=== PATIENT | female | born 1965 | race African-American/Black ===

== ENCOUNTER 2020-03-13 16:25 | Inpatient (IN) | payer MEDICAID ==
[~2020-03-13] VITALS: Ht 157.5 cm; Wt 57.6 kg
[~2020-03-13 16:25] MED LIST: UNK HTN MEDS
[2020-03-13] MEDS ORDERED: ACETAMINOPHEN 325MG TABLET PO STA (17:31)
[2020-03-13] MEDS ORDERED: ONDANSETRON HCL 4MG/2ML INJ IV STA (17:31)
[2020-03-13] MEDS ORDERED: SODIUM CHLORIDE 0.9% 1,000 ML IV ONE (17:31)
[2020-03-13] MEDS ORDERED: MORPHINE SULFATE 4 MG/ML CPJ (NOT FOR IM USE) IV STA (17:31)
[2020-03-13 18:07] LABS: HEMATOCRIT. 30.5 % (36.0-48.0); HEMOGLOBIN. 10.4 g/dL (12.0-16.0); MEAN CORPUSCULAR HEMOGLOBIN 30.8 pg (28.0-32.0); MEAN PLATELET VOLUME 6.6 fl (7.4-10.4); PLATELET 968 x1000/uL (130-400); RED BLOOD CELL COUNT 3.38 mill/uL (4.2-5.4); RED CELL DISTRIBUTION WIDTH 16.8 % (11.6-14.6)
[2020-03-13 18:13] LABS: CHLORIDE 88 mEq/L (98-107)
[2020-03-13 18:25] LABS: INR 1.2; PROTHROMBIN TIME 12.9 sec (9.6-11.0)
[2020-03-13 18:56] LABS: CLARITY URINE CLEAR (CLEAR); COLOR URINE DARK YELLOW (YELLOW); KETONES URINE NEGATIVE (NEGATIVE); LEUKOCYTE ESTERASE URINE TRACE (NEGATIVE); NITRITE URINE NEGATIVE (NEGATIVE); OCCULT BLOOD URINE NEGATIVE (NEGATIVE); PROTEIN URINE 1+ (NEGATIVE); SPECIFIC GRAVITY URINE 1.022 (1.005-1.030)
[2020-03-13] MEDS ORDERED: CEFTRIAXONE 1 G PREMIX 50 ML IV ONE (19:15)
[2020-03-13] MEDS ORDERED: SODIUM CHLORIDE 0.9% 1000ML BAG (SEPSIS BOLUS) IV ONE (19:15)
[2020-03-13 20:45] VITALS: BP 127/74
[2020-03-13 21:19] LABS: PLATELET ESTIMATE MARKEDLY INCREASED
[2020-03-13] MEDS ORDERED: ACETAMINOPHEN 325MG TABLET PO PRN (22:15)
[2020-03-13] MEDS ORDERED: ZOLPIDEM TARTRATE 5MG TABLET PO PRN (22:15)
[2020-03-13] MEDS ORDERED: CLONIDINE 0.2MG TABLET PO PRN (22:15)
[2020-03-13] MEDS ORDERED: SODIUM CHLORIDE 0.45% 1,000 ML IV SCH (22:15)
[2020-03-13] MEDS: HYDROCODONE/ACETAMINOPHEN 5/325MG TABLET PO PRN (22:39)
[2020-03-13] MEDS: SODIUM CHLORIDE 0.9% 1,000 ML IV SCH (23:09)
[2020-03-14 00:26] VITALS: BP 118/65
[2020-03-14] MEDS: HYDROCODONE/ACETAMINOPHEN 5/325MG TABLET PO PRN ×3 (03:27→20:18)
[2020-03-14 04:00] VITALS: BP 134/68
[2020-03-14 08:00] VITALS: BP 132/82
[2020-03-14] MEDS: DOCUSATE SODIUM 100MG CAPSULE PO SCH (08:25)
[2020-03-14] MEDS: ENOXAPARIN 40MG/0.4ML SYR SUBCUT SCH (08:26)
[2020-03-14 11:22] LABS: HEMATOCRIT 29.2 % (36.0-48.0); HEMOGLOBIN 9.7 g/dL (12.0-16.0); MEAN CORPUSCULAR HEMOGLOBIN 30.5 pg (28.0-32.0); MEAN CORPUSCULAR VOLUME 91.3 fL (81.0-99.0); PLATELET 893 x1000/uL (130-400); RED BLOOD CELL COUNT 3.19 mill/uL (4.2-5.4); RED CELL DISTRIBUTION WIDTH 17.3 % (11.6-14.6)
[2020-03-14 12:00] VITALS: BP 123/77
[2020-03-14] MEDS: SODIUM CHLORIDE 0.9% 1,000 ML IV SCH ×2 (12:05→21:43)
[2020-03-14 13:05] LABS: CHLORIDE 95 mEq/L (98-107)
[2020-03-14 16:00] VITALS: BP 129/75
[2020-03-14] MEDS ORDERED: CEFTRIAXONE 1,000 MG in DEXTROSE 5% WATER 50 ML IV SCH (20:00)
[2020-03-14 20:13] VITALS: BP 133/79
[2020-03-15 00:45] VITALS: BP 145/75
[2020-03-15 04:00] VITALS: BP 141/83
[2020-03-15] MEDS: HYDROCODONE/ACETAMINOPHEN 5/325MG TABLET PO PRN ×2 (04:36→10:37)
[2020-03-15 07:25] LABS: BASOPHILS % 0.5 % (0.0-2.0); EOSINOPHILS % 0.4 % (0.0-5.0); HEMATOCRIT. 29.6 % (36.0-48.0); HEMOGLOBIN. 9.8 g/dL (12.0-16.0); LYMPHOCYTES % 15.1 % (20.0-50.0); MEAN CORPUSCULAR HEMOGLOBIN 30.3 pg (28.0-32.0); MEAN CORPUSCULAR VOLUME 91.4 fL (81.0-99.0); MEAN PLATELET VOLUME 6.9 fl (7.4-10.4); MONOCYTES % 14.1 % (2.0-8.0); NEUTROPHILS % 69.9 % (40.0-76.0); PLATELET 906 x1000/uL (130-400); RED BLOOD CELL COUNT 3.24 mill/uL (4.2-5.4)
[2020-03-15 07:52] LABS: CHLORIDE 89 mEq/L (98-107)
[2020-03-15 08:00] VITALS: BP 111/77
[2020-03-15] MEDS: DOCUSATE SODIUM 100MG CAPSULE PO SCH (08:54)
[2020-03-15] MEDS: ENOXAPARIN 40MG/0.4ML SYR SUBCUT SCH (08:56)
[2020-03-15 12:00] VITALS: BP 128/76
[2020-03-15 13:33] VITALS: BP 128/76
== END 2020-03-15 15:15 | disposition home health service (06) | DRG 720 ==
LOC: ER 16:25 → 6WST 19:44 → EDBEDREQTM 19:46 → EDBEDREQSVC 19:46 → EDBEDREQ 19:46 → ENRESERV 19:49
PROVIDERS: ADMIT Internal Medicine; ATTEND Internal Medicine
DX: A41.9 Sepsis, unspecified organism (principal); N12 Tubulo-interstitial nephritis, not specified as acute or chronic; E86.0 Dehydration; E87.1 Hypo-osmolality and hyponatremia; I10 Essential (primary) hypertension; K59.00 Constipation, unspecified; Z88.6 Allergy status to analgesic agent; Z79.899 Other long term (current) drug therapy; Z87.440 Personal history of urinary (tract) infections; E44.1 Mild protein-calorie malnutrition
CPT/HCPCS: 36415; 74176; 80048; 80053; 81003; 83605; 84145; 84484; 85025; 85027; 93005; 97162; 99291; J0696; J1650; J2270; J2405; J7030; J7060

== ENCOUNTER 2020-03-27 15:37 | Inpatient (IN) | payer MEDICAID ==
[~2020-03-27] VITALS: Ht 165.1 cm; Wt 51.8 kg
[2020-03-27] MEDS ORDERED: SODIUM CHLORIDE 0.9% 1000ML BAG (SEPSIS BOLUS) IV ONE (17:15)
[2020-03-27] MEDS ORDERED: MORPHINE SULFATE 4 MG/ML CPJ (NOT FOR IM USE) IV ONE ×2 (17:15→19:00)
[2020-03-27 17:25] LABS: BASOPHILS % 0.5 % (0.0-2.0); EOSINOPHILS % 0.1 % (0.0-5.0); LYMPHOCYTES % 15.2 % (20.0-50.0); MEAN CORPUSCULAR HEMOGLOBIN 29.9 pg (28.0-32.0); MEAN CORPUSCULAR VOLUME 89.6 fL (81.0-99.0); MEAN PLATELET VOLUME 6.1 fl (7.4-10.4); NEUTROPHILS % 71.2 % (40.0-76.0); PLATELET 906 x1000/uL (130-400); RED BLOOD CELL COUNT 3.34 mill/uL (4.2-5.4); RED CELL DISTRIBUTION WIDTH 17.8 % (11.6-14.6)
[2020-03-27 17:31] LABS: CHLORIDE 94 mEq/L (98-107)
[2020-03-27 18:03] LABS: INR 1.2; PROTHROMBIN TIME 12.3 sec (9.6-11.0)
[2020-03-27] MEDS ORDERED: CEFTRIAXONE 1 G PREMIX 50 ML IV ONE (19:00)
[2020-03-27 20:29] LABS: CLARITY URINE CLEAR (CLEAR); COLOR URINE DARK YELLOW (YELLOW); KETONES URINE 1+ (NEGATIVE); LEUKOCYTE ESTERASE URINE TRACE (NEGATIVE); NITRITE URINE NEGATIVE (NEGATIVE); OCCULT BLOOD URINE NEGATIVE (NEGATIVE); PH URINE 5.5 (4.5-8.0); PROTEIN URINE TRACE (NEGATIVE); SPECIFIC GRAVITY URINE 1.017 (1.005-1.030)
[2020-03-27 23:00] VITALS: BP 151/82
[2020-03-28] VITALS: BP 141/84
[2020-03-28] MEDS ORDERED: ONDANSETRON HCL 4MG/2ML INJ IV PRN
[2020-03-28] MEDS: MORPHINE SULFATE 2 MG/ML CPJ (NOT FOR IM USE) IV PRN ×3 (00:47→22:26)
[2020-03-28] MEDS: METRONIDAZOLE 500 MG PREMIX 100 ML IV SCH ×3 (01:53→16:21)
[2020-03-28] MEDS: LEVOFLOXACIN 500MG PREMIX 100 ML IV SCH (02:52)
[2020-03-28] MEDS ORDERED: HYDR50TA54 GT (03:17)
[2020-03-28] MEDS ORDERED: QUET200T MT (03:17)
[2020-03-28] MEDS ORDERED: TRAZ-251 MT (03:17)
[2020-03-28] MEDS ORDERED: DIVA500T3 PO (03:17)
[2020-03-28 04:00] VITALS: BP 141/73
[2020-03-28] MEDS ORDERED: PNEUMOCOCCAL 23-VAL P-SAC VAC 0.5 ML IM ONE (06:00)
[2020-03-28 07:04] LABS: HEMATOCRIT. 25.6 % (36.0-48.0); HEMOGLOBIN. 8.5 g/dL (12.0-16.0); MEAN CORPUSCULAR HEMOGLOBIN 29.8 pg (28.0-32.0); MEAN CORPUSCULAR VOLUME 89.2 fL (81.0-99.0); MEAN PLATELET VOLUME 6.5 fl (7.4-10.4); PLATELET 835 x1000/uL (130-400); RED BLOOD CELL COUNT 2.86 mill/uL (4.2-5.4); RED CELL DISTRIBUTION WIDTH 17.2 % (11.6-14.6)
[2020-03-28 07:10] LABS: CHLORIDE 97 mEq/L (98-107)
[2020-03-28 08:00] VITALS: BP 100/64
[2020-03-28 12:00] VITALS: BP 112/68
[2020-03-28] MEDS: HYDROCODONE/ACETAMINOPHEN 10/325MG TABLET PO PRN (14:56)
[2020-03-28 15:22] LABS: PLATELET ESTIMATE INCREASED
[2020-03-28 16:00] VITALS: BP 132/86
[2020-03-28] MEDS: ACETAMINOPHEN 325MG TABLET PO PRN ×2 (16:21→23:40)
[2020-03-28] MEDS: ENOXAPARIN 60MG/0.6ML SYR SUBCUT SCH (17:55)
[2020-03-28 18:02] LABS: TOTAL IRON BINDING CAPACITY 129 ug/dL (250-450)
[2020-03-28 20:00] VITALS: BP 106/74
[2020-03-28] MEDS ORDERED: TRAZODONE HCL 50MG TABLET PO SCH (21:00)
[2020-03-29] VITALS: BP 118/65
[2020-03-29] MEDS: HYDROCODONE/ACETAMINOPHEN 10/325MG TABLET PO PRN ×3 (01:42→13:45)
[2020-03-29] MEDS: LEVOFLOXACIN 500MG PREMIX 100 ML IV SCH (02:30)
[2020-03-29 02:58] LABS: *AMPHETAMINES SCREEN URINE NEGATIVE (NEGATIVE); *BARBITURATES SCREEN URINE NEGATIVE (NEGATIVE); *BENZODIAZEPINES SCREEN URINE NEGATIVE (NEGATIVE); *COCAINE SCREEN URINE NEGATIVE (NEGATIVE); METHADONE URINE SCREEN NEGATIVE (NEGATIVE); OPIATES URINE SCREEN PRESUMTIVE POSITIVE (NEGATIVE)
[2020-03-29 02:59] LABS: CANNABINOID URINE SCREEN NEGATIVE (NEGATIVE); PHENCYCLIDINE URINE SCREEN NEGATIVE (NEGATIVE)
[2020-03-29 04:00] VITALS: BP 115/71
[2020-03-29] MEDS: ENOXAPARIN 60MG/0.6ML SYR SUBCUT SCH ×2 (05:59→17:07)
[2020-03-29 06:28] LABS: BASOPHILS % 0.5 % (0.0-2.0); EOSINOPHILS % 0.3 % (0.0-5.0); HEMOGLOBIN. 9.3 g/dL (12.0-16.0); LYMPHOCYTES % 21.1 % (20.0-50.0); MEAN CORPUSCULAR HEMOGLOBIN 29.6 pg (28.0-32.0); MEAN CORPUSCULAR VOLUME 89.5 fL (81.0-99.0); MEAN PLATELET VOLUME 6.7 fl (7.4-10.4); MONOCYTES % 14.9 % (2.0-8.0); NEUTROPHILS % 63.2 % (40.0-76.0); PLATELET 855 x1000/uL (130-400); RED BLOOD CELL COUNT 3.13 mill/uL (4.2-5.4); RED CELL DISTRIBUTION WIDTH 17.2 % (11.6-14.6)
[2020-03-29 07:01] LABS: HEPATITIS B SURFACE ANTIGEN NEGATIVE
[2020-03-29 07:22] LABS: CHLORIDE 96 mEq/L (98-107)
[2020-03-29 07:31] LABS: HEPATITIS A AB IGM NEGATIVE (NEGATIVE)
[2020-03-29 08:00] VITALS: BP 104/76
[2020-03-29] MEDS: MORPHINE SULFATE 2 MG/ML CPJ (NOT FOR IM USE) IV PRN ×2 (10:27→20:53)
[2020-03-29 12:00] VITALS: BP 125/73
[2020-03-29] MEDS: LACTULOSE 20G/30ML UDC PO PRN (13:45)
[2020-03-29 16:00] VITALS: BP 111/76
[2020-03-29 20:00] VITALS: BP 125/75
[2020-03-29] MEDS: QUETIAPINE FUMARATE 50MG TABLET PO SCH (20:53)
[2020-03-29] MEDS ORDERED: LACTULOSE 20G/30ML UDC PO PRN (21:00)
[2020-03-30] VITALS: BP 132/68
[2020-03-30 04:00] VITALS: BP 110/62
[2020-03-30] MEDS: LEVOFLOXACIN 500MG PREMIX 100 ML IV SCH (04:01)
[2020-03-30] MEDS: ENOXAPARIN 60MG/0.6ML SYR SUBCUT SCH ×2 (05:25→17:00)
[2020-03-30] MEDS: MORPHINE SULFATE 2 MG/ML CPJ (NOT FOR IM USE) IV PRN (06:36)
[2020-03-30 07:19] LABS: HEMOGLOBIN. 8.5 g/dL (12.0-16.0); MEAN CORPUSCULAR HEMOGLOBIN 28.9 pg (28.0-32.0); MEAN PLATELET VOLUME 6.7 fl (7.4-10.4); PLATELET 879 x1000/uL (130-400); RED BLOOD CELL COUNT 2.92 mill/uL (4.2-5.4); RED CELL DISTRIBUTION WIDTH 17.4 % (11.6-14.6)
[2020-03-30 08:00] VITALS: BP 106/64
[2020-03-30] MEDS: HYDROCODONE/ACETAMINOPHEN 10/325MG TABLET PO PRN ×2 (09:12→17:01)
[2020-03-30] MEDS: LACTULOSE 20G/30ML UDC PO PRN (09:16)
[2020-03-30 09:32] LABS: CHLORIDE 96 mEq/L (98-107)
[2020-03-30 10:31] LABS: NUCLEATED RED BLOOD CELLS 1 /100 WBC; PLATELET ESTIMATE MARKEDLY INCREASED
[2020-03-30] MEDS ORDERED: SORBITOL 70% SOLN 30ML PO NR (11:45)
[2020-03-30] MEDS ORDERED: BISACODYL 10MG SUPP PR PRN (11:45)
[2020-03-30 12:00] VITALS: BP 121/77
[2020-03-30] MEDS: MULTIVITAMINS,THER W-MINERALS TABLET PO SCH (17:00)
[2020-03-30] MEDS: METOPROLOL TARTRATE 25MG TABLET PO SCH (21:20)
[2020-03-30] MEDS: MORPHINE SULFATE 15MG TABLET SR PO SCH (21:21)
[2020-03-30] MEDS: QUETIAPINE FUMARATE 50MG TABLET PO SCH (23:00)
[2020-03-30] MEDS: ACETAMINOPHEN 325MG TABLET PO PRN (23:52)
[2020-03-31] MEDS: HYDROCODONE/ACETAMINOPHEN 10/325MG TABLET PO PRN ×2 (01:02→14:34)
[2020-03-31] MEDS: LEVOFLOXACIN 500MG PREMIX 100 ML IV SCH (01:06)
[2020-03-31] MEDS: ENOXAPARIN 60MG/0.6ML SYR SUBCUT SCH ×2 (05:54→17:05)
[2020-03-31 06:43] LABS: HEMATOCRIT. 27.3 % (36.0-48.0); MEAN CORPUSCULAR HEMOGLOBIN 29.7 pg (28.0-32.0); MEAN CORPUSCULAR VOLUME 89.7 fL (81.0-99.0); MEAN PLATELET VOLUME 6.3 fl (7.4-10.4); PLATELET 927 x1000/uL (130-400); RED BLOOD CELL COUNT 3.04 mill/uL (4.2-5.4); RED CELL DISTRIBUTION WIDTH 17.4 % (11.6-14.6)
[2020-03-31 06:56] LABS: CHLORIDE 99 mEq/L (98-107)
[2020-03-31 08:00] VITALS: BP 122/72
[2020-03-31] MEDS: MULTIVITAMINS,THER W-MINERALS TABLET PO SCH (09:00)
[2020-03-31] MEDS: METOPROLOL TARTRATE 25MG TABLET PO SCH (09:00)
[2020-03-31] MEDS: MORPHINE SULFATE 15MG TABLET SR PO SCH ×2 (09:00→21:00)
[2020-03-31 12:00] VITALS: BP 126/78
[2020-03-31] MEDS ORDERED: METOPROLOL TARTRATE 25MG TABLET PO NR (12:30)
[2020-03-31] MEDS ORDERED: DILTIAZEM HCL 5MG/ML 5ML VIAL IV NR (13:00)
[2020-03-31] MEDS: SODIUM CHLORIDE 0.9% 1,000 ML IV SCH (13:10)
[2020-03-31] MEDS ORDERED: FLUCONAZOLE 150MG TABLET PO SCH (14:00)
[2020-03-31 14:25] LABS: PLATELET ESTIMATE INCREASED
[2020-03-31] MEDS ORDERED: ALBUTEROL (0.083%) 2.5MG/3ML NEB HHN SCH (15:00)
[2020-03-31 16:00] VITALS: BP 100/61
[2020-03-31 20:00] VITALS: BP 112/67
[2020-03-31] MEDS: ACETAMINOPHEN 325MG TABLET PO PRN (21:00)
[2020-03-31] MEDS: METOPROLOL TARTRATE 50MG TABLET PO SCH (21:00)
[2020-03-31] MEDS: QUETIAPINE FUMARATE 50MG TABLET PO SCH (22:04)
[2020-04-01] VITALS: BP 91/63
[2020-04-01] MEDS: SODIUM CHLORIDE 0.9% 1,000 ML IV SCH ×2 (01:50→17:43)
[2020-04-01 04:00] VITALS: BP 111/65
[2020-04-01] MEDS: ENOXAPARIN 60MG/0.6ML SYR SUBCUT SCH ×2 (06:00→17:43)
[2020-04-01 07:17] LABS: HEMATOCRIT. 25.6 % (36.0-48.0); HEMOGLOBIN. 8.6 g/dL (12.0-16.0); MEAN CORPUSCULAR HEMOGLOBIN 29.4 pg (28.0-32.0); MEAN CORPUSCULAR VOLUME 87.8 fL (81.0-99.0); MEAN PLATELET VOLUME 6.4 fl (7.4-10.4); PLATELET 900 x1000/uL (130-400); RED BLOOD CELL COUNT 2.91 mill/uL (4.2-5.4); RED CELL DISTRIBUTION WIDTH 17.1 % (11.6-14.6)
[2020-04-01 07:35] LABS: CHLORIDE 99 mEq/L (98-107)
[2020-04-01 08:00] VITALS: BP 101/63
[2020-04-01 08:38] LABS: PLATELET ESTIMATE MARKEDLY INCREASED
[2020-04-01] MEDS: METOPROLOL TARTRATE 50MG TABLET PO SCH ×2 (08:46→21:00)
[2020-04-01] MEDS ORDERED: IPRATROPIUM BROMIDE (0.02%) 0.5MG/2.5ML NEB HHN SCH (10:00)
[2020-04-01 11:50] VITALS: BP 106/63
[2020-04-01] MEDS: MULTIVITAMINS,THER W-MINERALS TABLET PO SCH (11:58)
[2020-04-01] MEDS: MORPHINE SULFATE 15MG TABLET SR PO SCH ×2 (11:58→21:16)
[2020-04-01] MEDS: DOCUSATE SODIUM 250MG CAPSULE PO SCH (13:27)
[2020-04-01 16:00] VITALS: BP 111/69
[2020-04-01 20:00] VITALS: BP 104/62
[2020-04-01] MEDS: QUETIAPINE FUMARATE 50MG TABLET PO SCH (21:16)
[2020-04-01] MEDS: ACETAMINOPHEN 325MG TABLET PO PRN (21:16)
[2020-04-02] VITALS (10 sets, daily range): BP systolic 96–136; BP diastolic 55–78
[2020-04-02] MEDS: SODIUM CHLORIDE 0.9% 1,000 ML IV SCH ×2 (04:30→18:07)
[2020-04-02] MEDS: ENOXAPARIN 60MG/0.6ML SYR SUBCUT SCH ×2 (06:00→18:00)
[2020-04-02] MEDS ORDERED: SODIUM BICARBONATE 4% (2.4MEQ) 5ML VIAL IV ONE (08:43)
[2020-04-02] MEDS ORDERED: LIDOCAINE HCL 1% 20ML VIAL (Pyxis) INJ ONE (08:44)
[2020-04-02] MEDS: METOPROLOL TARTRATE 50MG TABLET PO SCH ×2 (08:48→20:27)
[2020-04-02] MEDS ORDERED: IOHEXOL-300 100 ML BOTTLE ONE (08:49)
[2020-04-02] MEDS: MULTIVITAMINS,THER W-MINERALS TABLET PO SCH (10:35)
[2020-04-02] MEDS: DOCUSATE SODIUM 250MG CAPSULE PO SCH (10:36)
[2020-04-02] MEDS: MORPHINE SULFATE 15MG TABLET SR PO SCH ×2 (10:36→21:32)
[2020-04-02] MEDS ORDERED: IOHEXOL-350 100 ML BOTTLE ONE (12:40)
[2020-04-02] MEDS ORDERED: SORBITOL 70% SOLN 30ML PO SCH (15:00)
[2020-04-02 16:32] LABS: BASOPHILS % 0.8 % (0.0-2.0); EOSINOPHILS % 0.1 % (0.0-5.0); HEMATOCRIT. 25.8 % (36.0-48.0); HEMOGLOBIN. 8.3 g/dL (12.0-16.0); LYMPHOCYTES % 15.1 % (20.0-50.0); MEAN CORPUSCULAR HEMOGLOBIN 28.5 pg (28.0-32.0); MEAN CORPUSCULAR VOLUME 88.3 fL (81.0-99.0); MEAN PLATELET VOLUME 6.5 fl (7.4-10.4); MONOCYTES % 14.1 % (2.0-8.0); NEUTROPHILS % 69.9 % (40.0-76.0); PLATELET 910 x1000/uL (130-400); RED BLOOD CELL COUNT 2.93 mill/uL (4.2-5.4); RED CELL DISTRIBUTION WIDTH 17.4 % (11.6-14.6)
[2020-04-02 16:44] LABS: CHLORIDE 100 mEq/L (98-107)
[2020-04-02] MEDS: ACETAMINOPHEN 325MG TABLET PO PRN (20:27)
[2020-04-02] MEDS: QUETIAPINE FUMARATE 50MG TABLET PO SCH (21:32)
[2020-04-03] VITALS: BP 99/55
[2020-04-03 04:00] VITALS: BP 119/78
[2020-04-03] MEDS: ENOXAPARIN 60MG/0.6ML SYR SUBCUT SCH (06:00)
[2020-04-03 07:03] LABS: BASOPHILS % 0.6 % (0.0-2.0); EOSINOPHILS % 0.3 % (0.0-5.0); HEMATOCRIT. 24.4 % (36.0-48.0); LYMPHOCYTES % 14.8 % (20.0-50.0); MEAN CORPUSCULAR HEMOGLOBIN 28.8 pg (28.0-32.0); MEAN CORPUSCULAR VOLUME 87.6 fL (81.0-99.0); MEAN PLATELET VOLUME 6.6 fl (7.4-10.4); MONOCYTES % 14.9 % (2.0-8.0); NEUTROPHILS % 69.4 % (40.0-76.0); PLATELET 857 x1000/uL (130-400); RED BLOOD CELL COUNT 2.78 mill/uL (4.2-5.4); RED CELL DISTRIBUTION WIDTH 17.5 % (11.6-14.6)
[2020-04-03 07:13] LABS: CHLORIDE 102 mEq/L (98-107)
[2020-04-03 08:00] VITALS: BP 121/69
[2020-04-03] MEDS: MULTIVITAMINS,THER W-MINERALS TABLET PO SCH (08:08)
[2020-04-03] MEDS: DOCUSATE SODIUM 250MG CAPSULE PO SCH (08:08)
[2020-04-03] MEDS: SODIUM CHLORIDE 0.9% 1,000 ML IV SCH (08:08)
[2020-04-03] MEDS: MORPHINE SULFATE 15MG TABLET SR PO SCH ×2 (08:10→20:12)
[2020-04-03] MEDS: METOPROLOL TARTRATE 50MG TABLET PO SCH ×2 (08:10→20:12)
[2020-04-03] MEDS: IPRATROPIUM BROMIDE (0.02%) 0.5MG/2.5ML NEB HHN PRN ×2 (09:20→17:36)
[2020-04-03] MEDS: BUDESONIDE 0.5MG/2ML NEB HHN SCH ×2 (09:20→21:11)
[2020-04-03 12:00] VITALS: BP 97/56
[2020-04-03 16:00] VITALS: BP 101/56
[2020-04-03] MEDS: HYDROCODONE/ACETAMINOPHEN 5/325MG TABLET PO PRN (19:44)
[2020-04-03 20:00] VITALS: BP 111/66
[2020-04-03] MEDS: QUETIAPINE FUMARATE 50MG TABLET PO SCH (20:11)
[2020-04-03] MEDS: LORAZEPAM 2MG/ML CPJ IV PRN (21:18)
[2020-04-04] VITALS: BP 98/56
[2020-04-04 04:00] VITALS: BP 103/61
[2020-04-04] MEDS: HYDROCODONE/ACETAMINOPHEN 5/325MG TABLET PO PRN ×2 (06:11→18:59)
[2020-04-04] MEDS: SODIUM CHLORIDE 0.9% 1,000 ML IV SCH ×3 (06:44→20:33)
[2020-04-04 08:00] VITALS: BP 132/75
[2020-04-04] MEDS: BUDESONIDE 0.5MG/2ML NEB HHN SCH ×2 (08:57→21:47)
[2020-04-04] MEDS: DOCUSATE SODIUM 250MG CAPSULE PO SCH (09:10)
[2020-04-04] MEDS: MULTIVITAMINS,THER W-MINERALS TABLET PO SCH (09:10)
[2020-04-04] MEDS: MORPHINE SULFATE 15MG TABLET SR PO SCH ×2 (09:11→20:32)
[2020-04-04] MEDS: METOPROLOL TARTRATE 50MG TABLET PO SCH (09:12)
[2020-04-04 12:00] VITALS: BP 114/71
[2020-04-04] MEDS ORDERED: SORBITOL 70% SOLN 30ML PO NR (12:15)
[2020-04-04 16:00] VITALS: BP 112/69
[2020-04-04 16:52] LABS: HEMATOCRIT. 25.5 % (36.0-48.0); HEMOGLOBIN. 8.3 g/dL (12.0-16.0); MEAN CORPUSCULAR HEMOGLOBIN 28.6 pg (28.0-32.0); MEAN CORPUSCULAR VOLUME 87.7 fL (81.0-99.0); MEAN PLATELET VOLUME 6.9 fl (7.4-10.4); PLATELET 986 x1000/uL (130-400); RED BLOOD CELL COUNT 2.91 mill/uL (4.2-5.4); RED CELL DISTRIBUTION WIDTH 17.9 % (11.6-14.6)
[2020-04-04 16:53] LABS: CHLORIDE 99 mEq/L (98-107)
[2020-04-04 17:00] LABS: T4 FREE 1.22 ng/dL (0.76-1.46)
[2020-04-04 19:31] VITALS: BP 143/86
[2020-04-04] MEDS: QUETIAPINE FUMARATE 50MG TABLET PO SCH (20:32)
[2020-04-04] MEDS: LORAZEPAM 2MG/ML CPJ IV PRN (20:33)
[2020-04-04] MEDS: METOPROLOL TARTRATE 25MG TABLET PO SCH (20:33)
[2020-04-04] MEDS: LACTULOSE 20G/30ML UDC PO PRN (22:11)
[2020-04-04 22:44] LABS: PLATELET ESTIMATE MARKEDLY INCREASED
[2020-04-05] VITALS (7 sets, daily range): BP systolic 95–121; BP diastolic 62–79
[2020-04-05 07:29] LABS: BASOPHILS % 0.7 % (0.0-2.0); EOSINOPHILS % 0.4 % (0.0-5.0); HEMATOCRIT. 23.8 % (36.0-48.0); HEMOGLOBIN. 7.7 g/dL (12.0-16.0); MEAN CORPUSCULAR HEMOGLOBIN 28.6 pg (28.0-32.0); MEAN CORPUSCULAR VOLUME 88.4 fL (81.0-99.0); MEAN PLATELET VOLUME 6.6 fl (7.4-10.4); MONOCYTES % 12.2 % (2.0-8.0); NEUTROPHILS % 68.7 % (40.0-76.0); PLATELET 964 x1000/uL (130-400); RED BLOOD CELL COUNT 2.69 mill/uL (4.2-5.4); RED CELL DISTRIBUTION WIDTH 17.8 % (11.6-14.6)
[2020-04-05 07:39] LABS: CHLORIDE 103 mEq/L (98-107)
[2020-04-05] MEDS: METOPROLOL TARTRATE 25MG TABLET PO SCH ×2 (10:14→20:24)
[2020-04-05] MEDS: DOCUSATE SODIUM 250MG CAPSULE PO SCH (10:14)
[2020-04-05] MEDS: MULTIVITAMINS,THER W-MINERALS TABLET PO SCH (10:14)
[2020-04-05] MEDS: HYDROCODONE/ACETAMINOPHEN 5/325MG TABLET PO PRN ×2 (11:01→18:48)
[2020-04-05] MEDS: SODIUM CHLORIDE 0.9% 1,000 ML IV SCH (11:33)
[2020-04-05] MEDS: BUDESONIDE 0.5MG/2ML NEB HHN SCH (15:06)
[2020-04-05] MEDS ORDERED: MSCON30 PO (15:54)
[2020-04-05] MEDS ORDERED: DOCU250C14 PO (15:54)
[2020-04-05] MEDS ORDERED: HYDR-4001 MT (15:54)
[2020-04-05] MEDS ORDERED: ATROV INH (15:54)
[2020-04-05] MEDS ORDERED: METO75TA MT (15:59)
[2020-04-05] MEDS ORDERED: HYDROCODONE/ACETAMINOPHEN 5/325MG TABLET PO PRN (16:00)
[2020-04-05] MEDS: QUETIAPINE FUMARATE 50MG TABLET PO SCH (20:23)
[2020-04-05] MEDS ORDERED: MORPHINE SULFATE 30MG TABLET SR PO SCH (21:00)
[2020-04-06] VITALS: BP 121/79
[2020-04-06] MEDS: BUDESONIDE 0.5MG/2ML NEB HHN SCH (04:00)
== END 2020-04-06 00:30 | disposition home health service (06) | DRG 720 ==
LOC: ER 15:37 → 5WST 20:29 → EDBEDREQSVC 20:36 → EDBEDREQTM 20:36 → EDBEDREQ 20:36 → ENRESERV 21:22 → 5WST 22:51
PROVIDERS: ADMIT Internal Medicine; ATTEND Internal Medicine
PROC: 06H03DZ Insertion of Intraluminal Device into Inferior Vena Cava, Percutaneous Approach (ICD-10-PCS; principal; 2020-04-02)
PROC: B5191ZZ Fluoroscopy of Inferior Vena Cava using Low Osmolar Contrast (ICD-10-PCS; 2020-04-02)
DX: A41.9 Sepsis, unspecified organism (principal); J96.01 Acute respiratory failure with hypoxia; E43 Unspecified severe protein-calorie malnutrition; I82.412 Acute embolism and thrombosis of left femoral vein; J44.1 Chronic obstructive pulmonary disease with (acute) exacerbation; D68.59 Other primary thrombophilia; F43.10 Post-traumatic stress disorder, unspecified; D64.9 Anemia, unspecified; I10 Essential (primary) hypertension; G40.909 Epilepsy, unspecified, not intractable, without status epilepticus; Z68.1 Body mass index [BMI] 19.9 or less, adult; R74.0 Nonspecific elevation of levels of transaminase and lactic acid dehydrogenase [LDH]; B37.49 Other urogenital candidiasis; E11.9 Type 2 diabetes mellitus without complications; F99 Mental disorder, not otherwise specified; C79.51 Secondary malignant neoplasm of bone; F14.90 Cocaine use, unspecified, uncomplicated; F17.210 Nicotine dependence, cigarettes, uncomplicated; R62.7 Adult failure to thrive; Z80.9 Family history of malignant neoplasm, unspecified; Z88.6 Allergy status to analgesic agent; Z88.0 Allergy status to penicillin; Z79.899 Other long term (current) drug therapy; R19.00 Intra-abdominal and pelvic swelling, mass and lump, unspecified site
CPT/HCPCS: 36415; 37191; 71045; 71275; 74176; 80048; 80053; 80305; 81003; 82378; 82728; 83540; 83550; 83605; 84145; 84439; 84443; 84481; 84484; 85025; 86140; 86304; 86705; 86709; 86803; 87340; 90732; 93005; 93306; 93970; 94640; 99291; C1769; C1880; J0696; J1644; J1650; J1956; J2060; J2270; J3490; J7030; J7626; Q9967

== ENCOUNTER 2020-04-10 23:14 | Inpatient (IN) | payer MEDICAID, OTHER ==
[~2020-04-10] VITALS: Ht 157.5 cm; Wt 75.3 kg
[~2020-04-10 23:14] MED LIST changes: +ATROV INH; +DIVA500T3 PO; +DOCU250C14 PO; +HYDR-4001 MT; +HYDR50TA54 GT; +METO75TA MT; +MSCON30 PO; +QUET200T MT; +TRAZ-251 MT; -UNK HTN MEDS
[2020-04-10] MEDS ORDERED: MORPHINE SULFATE 4 MG/ML CPJ (NOT FOR IM USE) IV STA (23:40)
[2020-04-10] MEDS ORDERED: ONDANSETRON HCL 4MG/2ML INJ IV STA (23:40)
[2020-04-10] MEDS ORDERED: SODIUM CHLORIDE 0.9% 1,000 ML IV ONE (23:40)
[2020-04-11 00:05] LABS: CHLORIDE 97 mEq/L (98-107)
[2020-04-11 00:07] LABS: INR 1.6; PROTHROMBIN TIME 16.6 sec (9.6-11.0)
[2020-04-11 00:16] LABS: HEMATOCRIT. 26.5 % (36.0-48.0); HEMOGLOBIN. 8.8 g/dL (12.0-16.0); MEAN CORPUSCULAR HEMOGLOBIN 28.8 pg (28.0-32.0); MEAN CORPUSCULAR VOLUME 87.2 fL (81.0-99.0); MEAN PLATELET VOLUME 6.3 fl (7.4-10.4); RED BLOOD CELL COUNT 3.04 mill/uL (4.2-5.4); RED CELL DISTRIBUTION WIDTH 18.5 % (11.6-14.6)
[2020-04-11 00:21] LABS: PLATELET 1217 x1000/uL (130-400)
[2020-04-11 03:33] LABS: NUCLEATED RED BLOOD CELLS 1 /100 WBC; PLATELET ESTIMATE INCREASED
[2020-04-11 04:00] VITALS: BP_SYST 150; BP_SYST 151; BP_DIAS 70; BP_DIAS 73
[2020-04-11] MEDS: SODIUM CHLORIDE 0.9% 1,000 ML IV SCH ×2 (05:34→15:02)
[2020-04-11] MEDS: MORPHINE SULFATE 2 MG/ML CPJ (NOT FOR IM USE) IV PRN ×3 (05:35→17:59)
[2020-04-11 08:00] VITALS: BP 126/78
[2020-04-11] MEDS ORDERED: LEVO500T89 MT (08:27)
[2020-04-11] MEDS ORDERED: QUET200T29 MT (08:28)
[2020-04-11] MEDS: DIVALPROEX SODIUM 500MG ER TABLET PO SCH (09:15)
[2020-04-11] MEDS: METOPROLOL TARTRATE 50MG TABLET PO SCH ×2 (09:16→21:31)
[2020-04-11] MEDS: ENOXAPARIN 80MG/0.8ML SYR SUBCUT SCH ×2 (09:17→21:30)
[2020-04-11 10:02] LABS: CHLORIDE 102 mEq/L (98-107)
[2020-04-11 10:03] LABS: HEMATOCRIT. 23.8 % (36.0-48.0); HEMOGLOBIN. 7.7 g/dL (12.0-16.0); MEAN CORPUSCULAR VOLUME 87.1 fL (81.0-99.0); MEAN PLATELET VOLUME 6.1 fl (7.4-10.4); RED BLOOD CELL COUNT 2.73 mill/uL (4.2-5.4); RED CELL DISTRIBUTION WIDTH 19.2 % (11.6-14.6)
[2020-04-11 10:42] LABS: PLATELET 1044 x1000/uL (130-400)
[2020-04-11 12:00] VITALS: BP 110/62
[2020-04-11] MEDS ORDERED: HYDROCODONE/ACETAMINOPHEN 5/325MG TABLET PO PRN (13:30)
[2020-04-11] MEDS ORDERED: IPRATROPIUM/ALBUTEROL 0.5-3(2.5)MG/3ML NEB HHN PRN (13:45)
[2020-04-11] MEDS: LEVOFLOXACIN 500MG TABLET PO SCH (15:02)
[2020-04-11 16:00] VITALS: BP 122/78
[2020-04-11 20:00] VITALS: BP 108/71
[2020-04-11] MEDS: TRAZODONE HCL 50MG TABLET PO SCH (21:29)
[2020-04-11] MEDS: MORPHINE SULFATE 30MG TABLET SR PO SCH (21:30)
[2020-04-12] VITALS: BP 124/73
[2020-04-12] MEDS: SODIUM CHLORIDE 0.9% 1,000 ML IV SCH (01:16)
[2020-04-12 04:00] VITALS: BP 120/65
[2020-04-12] MEDS: DIVALPROEX SODIUM 500MG ER TABLET PO SCH (08:07)
[2020-04-12] MEDS: DOCUSATE SODIUM 250MG CAPSULE PO SCH (08:07)
[2020-04-12] MEDS: METOPROLOL TARTRATE 50MG TABLET PO SCH ×2 (08:08→21:01)
[2020-04-12] MEDS: MORPHINE SULFATE 30MG TABLET SR PO SCH ×2 (08:11→21:00)
[2020-04-12] MEDS: ENOXAPARIN 80MG/0.8ML SYR SUBCUT SCH (08:11)
[2020-04-12 08:34] LABS: PLATELET ESTIMATE MARKEDLY INCREASED
[2020-04-12] MEDS ORDERED: OXYCODONE HCL 5MG TABLET PO PRN (11:45)
[2020-04-12] MEDS: MORPHINE SULFATE 2 MG/ML CPJ (NOT FOR IM USE) IV PRN ×2 (12:36→23:50)
[2020-04-12] MEDS: LEVOFLOXACIN 500MG TABLET PO SCH (14:55)
[2020-04-12 20:00] VITALS: BP 135/75
[2020-04-12] MEDS: TRAZODONE HCL 50MG TABLET PO SCH (21:00)
[2020-04-12] MEDS ORDERED: QUETIAPINE FUMARATE 50MG TABLET PO SCH (21:00)
[2020-04-13] VITALS: BP 105/69
[2020-04-13 04:00] VITALS: BP 129/61
[2020-04-13] MEDS: MORPHINE SULFATE 2 MG/ML CPJ (NOT FOR IM USE) IV PRN (04:18)
[2020-04-13 08:00] VITALS: BP 106/59
[2020-04-13] MEDS: METOPROLOL TARTRATE 50MG TABLET PO SCH (08:54)
[2020-04-13] MEDS: DOCUSATE SODIUM 250MG CAPSULE PO SCH (09:58)
[2020-04-13] MEDS: DIVALPROEX SODIUM 500MG ER TABLET PO SCH (09:58)
[2020-04-13] MEDS: MORPHINE SULFATE 30MG TABLET SR PO SCH (09:59)
[2020-04-13 12:00] VITALS: BP 102/67
[2020-04-13 13:20] VITALS: BP 102/67
[2020-04-13] MEDS: LEVOFLOXACIN 500MG TABLET PO SCH (15:13)
[2020-04-13 15:35] VITALS: BP 110/59
== END 2020-04-13 16:57 | DRG 861 ==
LOC: ER 23:14 → 6EST 04-11 01:34 → EDBEDREQ 04-11 01:52 → EDBEDREQTM 04-11 01:52 → EDBEDREQDT 04-11 01:52 → EDBEDREQSVC 04-11 01:52 → ENRESERV 04-11 03:20
PROVIDERS: ADMIT Internal Medicine; ATTEND Internal Medicine
DX: G89.3 Neoplasm related pain (acute) (chronic) (principal); J18.9 Pneumonia, unspecified organism; I82.402 Acute embolism and thrombosis of unspecified deep veins of left lower extremity; E11.9 Type 2 diabetes mellitus without complications; I10 Essential (primary) hypertension; D64.9 Anemia, unspecified; J44.0 Chronic obstructive pulmonary disease with (acute) lower respiratory infection; Z87.891 Personal history of nicotine dependence; Z95.828 Presence of other vascular implants and grafts; Z88.0 Allergy status to penicillin; Z88.8 Allergy status to other drugs, medicaments and biological substances; Z79.899 Other long term (current) drug therapy
CPT/HCPCS: 36415; 71045; 80048; 80053; 83036; 85025; 93005; 96374; 97162; 99285; J1650; J2270; J2405; J7030